=== PATIENT | male | born 1965 | race Caucasian/White ===

== ENCOUNTER 2018-10-19 10:54 | Emergency (ER) | payer OTHER ==
[2018-10-19 11:26] VITALS: BP 135/73
[2018-10-19] MEDS ORDERED: Ondansetron ODT TAB* 4 MG PO ONE (11:38)
[2018-10-19] MEDS ORDERED: Acetaminophen TAB* 325 MG PO ONE (11:38)
--- NOTE | 2018-10-19 11:48 | UC ---
General HPI - HPI Summary HPI Summary: 53-year-old male comes in with a chief complaint of a fall at work. This occurred this morning when he slipped on some ice at work. He reports that he fell straight back. Denies any loss of consciousness. He does believe he hit the back of his head and his head hurts and his neck hurts and his low back hurts. Since the fall he started to have pain in the right shoulder also. No photophobia no photophobia. No weakness or numbness. Movement makes the pain worse. Here in clinic he is complaining of some nausea. Is not tried any ibuprofen or Tylenol for the pain. - History of Current Complaint Chief Complaint: UCBackPain Stated Complaint: W/C - BACK/SHOULDER/NECK PAIN S/P FALL Time Seen by Provider: 10/19/18 11:25 Pain Intensity: 7 - Allergy/Home Medications Allergies/Adverse Reactions: Allergies Allergy/AdvReac Type Severity Reaction Status Date / Time No Known Allergies Allergy Verified 10/19/18 11:19 Home Medications: Home Medications Glipizide/Metformin HCl [Glipizide/Metformin HCl 2.5-250 mg] 1 tab PO DAILY [History Confirmed 10/19/18] Liraglutide [Victoza] 18 mg SC DAILY 10/19/18 [History Confirmed 10/19/18] PMH/Surg Hx/FS Hx/Imm Hx Previously Healthy: Yes Endocrine History: Diabetes - Surgical History Surgical History: Yes Surgery Procedure, Year, and Place: lung biopsy. hernia repair. thumb - Family History Known Family History: Positive: Non-Contributory - Social History Alcohol Use: Occasionally Substance Use Type: None Smoking Status (MU): Never Smoked Tobacco Review of Systems All Other Systems Reviewed And Are Negative: Yes Constitutional: Positive: Negative Skin: Positive: Negative Eyes: Positive: Negative ENT: Negative: Nasal Discharge Respiratory: Positive: Negative Cardiovascular: Positive: Negative Gastrointestinal: Positive: Nausea Motor: Positive: Negative Neurovascular: Positive: Negative Musculoskeletal: Positive: Other: - see hpi Neurological: Positive: Headache Psychological: Positive: Negative Is Patient Immunocompromised?: No Physical Exam Triage Information Reviewed: Yes Appearance: Well-Appearing, Well-Nourished, Pain Distress - mild Vital Signs: Initial Vital Signs Temp 98.2 F 10/19/18 11:20 Pulse 92 10/19/18 11:20 Resp 16 10/19/18 11:20 BP 135/73 10/19/18 11:20 Pulse Ox 99 10/19/18 11:20 Vital Signs Reviewed: Yes Eye Exam: Normal Eyes: Positive: Conjunctiva Clear, Other: - perrla/eomi no photophobia ENT: Positive: TMs normal. Negative: Nasal drainage Neck: Positive: Supple, Other: - tender to palpation rt side of neck into rt trapezius Respiratory: Positive: Chest non-tender, Lungs clear, Normal breath sounds, No respiratory distress Cardiovascular: Positive: RRR Musculoskeletal: Positive: Other: - Patient is tender to palpation to the right of the midline of the neck. Neck has full range of motion. Low back is tender along the lumbar spine and in the paraspinous muscles. Right shoulder is tender in the shoulder joint itself. Both shoulders have full range of motion. Strength 5 out of 5 upper and lower extremities no sensation deficits. Neurological Exam: Normal - GCS 15 Neurological: Positive: Alert, Muscle Tone Normal Psychological Exam: Normal Psychological: Positive: Age Appropriate Behavior Skin Exam: Normal Course/Dx - Course Course Of Treatment: Patient Name: LEYLA OLEARY Medical Record#: [id number]. Ordering Physician: Negro Miller MD Acct.#: [id number]. : 1965 Age: 53 Sex: M Location: [facility]. Exam Date: 10/19/18 1140 ADM Status: REG ER. Order Information: CT SPINE CERVICAL W/O. Accession Number: [id number]. CPT: 17307. INDICATION: Posterior neck pain with radiation to the RIGHT shoulder following fall. COMPARISON: No relevant prior exams available on the [facility] PACS for comparison. TECHNIQUE: Multidetector CT images foramen magnum to lung apices without contrast. Multiplanar reformation. REPORT: Normal vertebral alignment accounting for exam positioning without. spondylolisthesis or subluxation at any level. Negative for cervical vertebral body or. posterior element fracture. Negative for paravertebral hematoma. Multilevel degenerative spondylosis and facet joint osteoarthritis. At C3-C4 uncinate process spurring results in slight RIGHT foraminal stenosis. At C5-C6 uncinate process spurring results in slight bilateral foraminal stenosis. IMPRESSION: #. No CT evidence for traumatic cervical spine injury. . <Electronically signed by Scott Cody MD in OV> 10/19/18 1214. Patient Name: LEYLA OLEARY Medical Record#: [id number]. Ordering Physician: Negro Miller MD Acct.#: [id number]. : 1965 Age: 53 Sex: M Location: [facility]. Exam Date: 10/19/181138 ADM Status: REG ER. Order Information: SHOULDER RIGHT 2+ VWS. Accession Number: [id number]. CPT: 62633. HISTORY: pain s/p fall. COMPARISONS: None. VIEWS: 4 , Frontal internal rotation, external rotation, outlet, and axillary views of the. right shoulder. FINDINGS: BONE DENSITY: Normal. BONES: There is no displaced fracture. JOINTS: There is mild osteoarthritis of the AC joints. ALIGNMENT: There is no dislocation. SOFT TISSUES: Unremarkable. OTHER FINDINGS: None. IMPRESSION: NO ACUTE OSSEOUS INJURY. IF SYMPTOMS PERSIST, RECOMMEND REPEAT IMAGING. . <Electronically signed by Matheus Rubio MD in OV> 10/19/18 1217. Patient Name: LEYLA OLEARY Medical Record#: [id number]. Ordering Physician: Negro Miller MD Acct.#: [id number]. : 1965 Age: 53 Sex: M Location: [facility]. Exam Date: 1138 ADM Status: REG ER. Order Information: SP LUMBARSACRAL 4+ VWS. Accession Number: [id number]. CPT: 94971. HISTORY: pain s/p fall. COMPARISONS: None. VIEWS: 5 , Frontal, lateral, coned-down lateral sacral, and bilateral oblique views of. the lumbar spine. FINDINGS: There is a transitional last lumbar type vertebral body which will be labeled S1. for the purposes of counting. ALIGNMENT: There is straightening of the normal lumbar lordosis. VERTEBRAL BODIES: The vertebral body heights are normal. The interpedicular distances are. normal. Incidentally noted is a small dysraphic defect of the posterior arch of S1. There. is partial lumbarization of the S1 vertebral body. JOINTS: The facet joints are normal. INTERVERTEBRAL DISCS: There is mild diffuse loss of intervertebral disc height. SOFT TISSUE: Unremarkable. OTHER: The pelvis is unremarkable. The lung bases are clear. IMPRESSION: MILD DEGENERATIVE DISC DISEASE. . <Electronically signed by Matheus Rubio MD in OV> 10/19/18 1216. Patient Name: LEYLA OLEARY Medical Record#: [id number]. Ordering Physician: Negro Miller MD Acct.#: [id number]. : 1965 Age: 53 Sex: M Location: [facility]. Exam Date: 10/19/18 1140 ADM Status: REG ER. Order Information: CT BRAIN WO. Accession Number: [id number]. CPT: 45510. HISTORY: pain s/p fall. COMPARISONS: None. TECHNIQUE: Multiple contiguous axial CT scans were obtained of the head without. intravenous contrast. FINDINGS: HEMORRHAGE/INFARCT: There is no hemorrhage or acute infarct. MASSES/SHIFT: There is no mass or shift. EXTRA- AXIAL SPACES: There are no extra-axial fluid collections. SULCI AND VENTRICLES : The sulci and ventricles are normal in size and position for the. patient's stated age. CEREBRUM: There are no focal parenchymal abnormalities. BRAINSTEM : There are no focal parenchymal abnormalities. CEREBELLUM: There are no focal parenchymal abnormalities. VESSELS: The vessels are grossly normal. PARANASAL SINUSES: The paranasal sinuses are clear. ORBITS: The orbits are unremarkable. BONES AND SOFT TISSUE: No bone or soft tissue abnormalities are noted. OTHER : None. IMPRESSION: NO ACUTE INTRACRANIAL PATHOLOGY. . <Electronically signed by Matheus Rubio MD in OV> 10/19/18 1211. I discussed the x-ray reports with the patient. The plan is ibuprofen and/or Tylenol as needed. The acetaminophen and Zofran in clinic did help decrease his symptoms. He did have a mild headache which got better with acetaminophen. Overall sides the headache he has no concussion symptoms. At this time if his symptoms return then I would consider this a concussion but at this time with the headache gone I do not consider to concussion. Patient will follow-up with occupational medicine if needed or return here or another medical provider as needed if worse or any other questions or concerns. - Diagnoses Provider Diagnosis: Head injury, Cervical strain, Sprain of shoulder, right, Sprain of low back Discharge - Sign-Out/Discharge Documenting (check all that apply): Patient Departure All imaging exams completed and their final reports reviewed: Yes - Discharge Plan Condition: Stable Disposition: HOME Patient Education Materials: Head Injury (ED), Cervical Sprain (ED), Shoulder Sprain (ED), Low Back Strain (ED) Forms: *Work Release Referrals: Kelin Stephenson [Primary Care Provider] - Victor Manuel Hutton MD [Medical Doctor] - Additional Instructions: FOLLOW UP WITH YOUR PRIMARY CARE DOCTOR OR DR HUTTON, OCCUPATIONAL MEDICINE, IF NOT COMPLETELY IMPROVED. GET RECHECKED FOR ANY WORSENING OF YOUR CONDITION; PAIN, WEAKNESS, NUMBNESS, DIFFICULTY WITH VISION OR SPEECH, UNEXPLAINED VOMITING, YOU FEEL ILL OR QUESTIONS OR CONCERNS. - Billing Disposition and Condition Condition: STABLE Disposition: Home
== END 2018-10-19 12:52 | disposition home or self-care (01) ==
LOC: UCCORT 10:54
DX: S09.90XA Unspecified injury of head, initial encounter (principal); S16.1XXA Strain of muscle, fascia and tendon at neck level, initial encounter; S43.401A Unspecified sprain of right shoulder joint, initial encounter; S33.5XXA Sprain of ligaments of lumbar spine, initial encounter; E11.9 Type 2 diabetes mellitus without complications; Z79.84 Long term (current) use of oral hypoglycemic drugs; W00.0XXA Fall on same level due to ice and snow, initial encounter; Y92.9 Unspecified place or not applicable; Y99.0 Civilian activity done for income or pay
CPT/HCPCS: 70450; 72110; 72125; 99202; A9270-GY; G0463

== ENCOUNTER 2019-02-11 11:28 | Emergency (ER) | payer BC, OTHER ==
[2019-02-11 11:42] VITALS: BP 132/73
--- NOTE | 2019-02-19 16:31 | UC ---
Abdominal Pain Male HPI - HPI Summary HPI Summary: Midabdominal pain for the past 4-5 months. The patient states that it is worsening today when at work. - History of Current Complaint Chief Complaint: UCAbdominalPain Stated Complaint: STOMACH CRAMPS Time Seen by Provider: 02/11/19 11:45 Hx Obtained From: Patient Onset/Duration: Gradual Onset Timing: Constant Severity Initially: Mild Severity Currently: Moderate Pain Intensity: 7 Pain Scale Used: 0-10 Numeric Location: Diffuse, Epigastric Radiates: No Character: Cramping, Dull Aggravating Factor(s): Nothing Alleviating Factor(s): Nothing Associated Signs And Symptoms: Positive: Nausea - Allergies/Home Medications Allergies/Adverse Reactions: Allergies Allergy/AdvReac Type Severity Reaction Status Date / Time No Known Allergies Allergy Verified 02/11/19 11:36 PMH/Surg Hx/FS Hx/Imm Hx Previously Healthy: Yes Respiratory History: Asthma - Asthma as a child - Surgical History Surgical History: Yes Surgery Procedure, Year, and Place: lung biopsy. hernia repair. thumb - Family History Known Family History: Positive: Non-Contributory - Social History Alcohol Use: Rare Substance Use Type: None Smoking Status (MU): Never Smoked Tobacco Review of Systems All Other Systems Reviewed And Are Negative: Yes Gastrointestinal: Positive: Abdominal Pain, Nausea - Patient describes abdominal pain as generalized but worse in the upper mid abdomen which he states he was at work today and the pain became worse. Is Patient Immunocompromised?: No Physical Exam Triage Information Reviewed: Yes Appearance: Well-Appearing, No Pain Distress, Well-Nourished Vital Signs: Initial Vital Signs Temp 97.3 F 02/11/19 11:37 Pulse 102 02/11/19 11:37 Resp 16 02/11/19 11:37 BP 132/73 02/11/19 11:37 Pulse Ox 98 02/11/19 11:37 Vital Signs Reviewed: Yes Eyes: Positive: Conjunctiva Clear ENT: Positive: Hearing grossly normal, Pharynx normal, TMs normal, Uvula midline Neck: Positive: Supple, Nontender, No Lymphadenopathy Respiratory: Positive: Lungs clear, Normal breath sounds, No respiratory distress, No accessory muscle use Cardiovascular: Positive: RRR, No Murmur, Pulses Normal, Brisk Capillary Refill Abdomen Description: Positive: No Organomegaly, Soft, Guarding, Other: - Mild guarding in the mid abdomen on palpation. No rigidity or rebound. Musculoskeletal Exam: Normal Neurological Exam: Normal Psychological Exam: Normal Skin Exam: Normal Abd Pain Male Course/Dx - Course Course Of Treatment: Even though this patient's abdominal pain has been chronic over the past for 5 months he states today it has become worse. I feel that he needs to go to the emergency room and be evaluated. He does not want to go to [facility], he wants to go to [place]. I did advise an ambulance transport however he refuses that.After the evaluation by the nurse practitioner, it is recommended that you go to the emergency room for further evaluation of the abdominal pain where you should receive additional testing that can be completed in the emergency department. It is recommended that you go directly to the emergency department. This evaluation may include blood work or imaging. This testing will be directed and decided by the provider that evaluates you within the emergency department. If pain becomes worse, you feel lightheaded or you develop uncontrolled vomiting, or have any other concerns while you are driving to the emergency room, please socket puller and call 911. - Differential Dx/Clinical Impression Provider Diagnosis: Abdominal pain Discharge - Sign-Out/Discharge Documenting (check all that apply): Patient Departure All imaging exams completed and their final reports reviewed: No Studies - Discharge Plan Condition: Fair Disposition: HOME-RECOMMEND TO ED Referrals: Kelin Stephenson [Primary Care Provider] - Additional Instructions: After the evaluation by the nurse practitioner, it is recommended that you go to the emergency room for further evaluation of the abdominal pain where you should receive additional testing that can be completed in the emergency department. It is recommended that you go directly to the emergency department. This evaluation may include blood work or imaging. This testing will be directed and decided by the provider that evaluates you within the emergency department. Because you have refused the ambulance, If your pain becomes worse, you feel lightheaded or you develop uncontrolled vomiting, or have any other concerns while you are driving to the emergency room, please socket puller and call 911. - Billing Disposition and Condition Condition: FAIR Disposition: Home-Recommend to ED
== END 2019-02-11 12:00 | disposition home health service (06) ==
LOC: UCCORT 11:28
DX: R10.13 Epigastric pain (principal); R11.0 Nausea
CPT/HCPCS: 99212; G0463